=== PATIENT | female | born 1930 | race Caucasian/White ===

== ENCOUNTER 2016-08-14 10:45 | Emergency (ER) | payer MEDICARE, BC ==
[2016-08-14] MEDS ORDERED: Nitroglycerin 0.4 MG Tab.SL SL ONE (10:56)
[2016-08-14 11:06] VITALS: BP 152/87
[2016-08-14] MEDS ORDERED: Clopidogrel 75 MG Tab PO ONE (11:11)
[2016-08-14] MEDS ORDERED: Heparin Sodium 5,000 Units/ML Vial IVPUSH ONE (11:11)
[2016-08-14] MEDS ORDERED: Heparin Sodium/D5W 25,000 UNITS/500 ML BAG IV SCH (11:15)
--- NOTE | 2016-08-14 11:24 | EDM.PDOC ---
[id number] 4d CHEST PAIN Time Seen by Provider: 08/14/16 10:50 Source of Information: Reports: Patient, Family History Limitations: Reports: No limitations - History of Present Illness INITIAL COMMENTS - FREE TEXT/NARRATIVE: 85-year-old female was at work this morning when she developed sudden substernal chest pain radiating into her neck and head. She had no shortness of breath or significant diaphoresis, but did have nausea. It was not resolving so she called her daughter who brought her into the emergency room. She had one emesis in route. She has no documented coronary artery disease but did have a Cardiolite stress test 1-1/2 year ago that did show some abnormalities. She also has had intermittent atrial fibrillation in the past. On arrival an EKG was done which showed ST elevation, borderline but present, in the inferior leads especially in compared to her EKG from 2014. She took 2 full aspirin prior to arriving. Her initial blood pressure was 190/90. She denied abdominal pain, peripheral edema or recent trauma. No fevers or chills. Onset: sudden Duration: Hour(s): (One and one half hours ago) Quality: Reports: Burning, Pressure Severity: moderate Associated Symptoms: Reports: chest pain, malaise, nausea/vomiting. 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: Reports: Aspirin (She took 2 adult aspirin) - Related Data Allergies Allergy/AdvReac Type Severity Reaction Status Date / Time No Known Allergies Allergy Verified 08/14/16 10:46 Home Meds: Home Meds Aspirin [[place] Aspirin] 81 mg PO DAILY 01/29/15 [History] Cranberry 400 mg PO DAILY 01/29/15 [History] Hydrochlorothiazide [Microzide] 12.5 mg PO DAILY 01/29/15 [History] Lisinopril 40 mg PO DAILY 01/29/15 [History] Multivitamin [Multi-Vitamin Daily] 1 tab PO DAILY 01/29/15 [History] Simvastatin [Zocor] 40 mg PO BEDTIME 01/29/15 [History] Triamcinolone Acetonide [Triamcinolone Acetonide 0.1% Crm] 1 applic TOP ASDIRECTED 01/29/15 [History] metFORMIN [Glucophage] 500 mg PO DAILY 01/29/15 [History] Past Medical History HEENT History: Reports: Cataract, Impaired vision Other HEENT History: wears glasses Cardiovascular History: Reports: Angina, High cholesterol, Hypertension Other Cardiovascular History: recurrent chest pains Gastrointestinal History: Reports: Chronic constipation Genitourinary History: Reports: Retention, urinary, UTI, recurrent Other Genitourinary History: frequent bladder infections 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: Musculoskeletal History: Reports: Arthritis, Fracture Other Musculoskeletal History: hand fracture Neurological History: Reports: Neuropathy, diabetic, Neuropathy, peripheral Endocrine/Metabolic History: Reports: Diabetes, type II - Infectious Disease History Infectious Disease History: Reports: Chicken pox, Measles, Mumps, Shingles - Past Surgical History HEENT Surgical History: Reports: Cataract surgery, Tonsillectomy Cardiovascular Surgical History: Reports: None GI Surgical History: Reports: Colon Female Surgical History: Reports: Other (see below) Other Female Surgeries/Procedures: stretched bladder Endocrine Surgical History: Reports: None Neurological Surgical History: Reports: None Musculoskeletal Surgical History: Reports: None Social & Family History - Family History Family Medical History: Noncontributory - Tobacco Use Smoking Status *Q: Never Smoker Years of Tobacco use: 2 Packs/Tins Daily: 0.5 Second Hand Smoke Exposure: No - Caffeine Use Caffeine Use: Reports: Coffee - Recreational Drug Use Recreational Drug Use: No ED ROS GENERAL - Review of Systems Review Of Systems: See Below Constitutional: Denies: fever, chills HEENT: Reports: No symptoms Respiratory: Denies: Shortness of Breath Cardiovascular: Reports: Chest pain. Denies: Palpitations GI/Abdominal: Reports: Nausea, Vomiting. Denies: Abdominal pain : Reports: no symptoms Skin: Reports: no symptoms Neurological: Reports: No Symptoms Psychiatric: Reports: No symptoms ED EXAM, GENERAL - Physical Exam Exam: See Below Exam Limited By: No limitations General Appearance: alert, anxious, mild distress (Patient was moderately uncomfortable on arrival) Eye Exam: bilateral eye: normal inspection Neck: non-tender Respiratory/Chest: no respiratory distress, lungs clear Cardiovascular: regular rate, rhythm. No: extra beats GI/Abdominal: soft, non tender Extremities: normal inspection. No: pedal edema Neurological: alert, oriented, no motor/sensory deficits Psychiatric: normal affect, normal mood Skin Exam: Warm, Dry EKG INTERPRETATION Rhythm: NSR ST-T: elevated (Lead 2-3 and aVF) Comparison: change from previous EKG (ST segments were level without elevation in 2014, patient was also in atrial fibrillation at that time) Course - Vital Signs Last Recorded V/S: Last Vital Signs Temp 96.6 F 08/14/16 10:57 Pulse 72 08/14/16 11:06 Resp 20 08/14/16 11:06 BP 152/87 H 08/14/16 11:06 Pulse Ox 93 L 08/14/16 11:06 - Orders/Labs/Meds Orders: Active Orders 24 hr Category Date Time Status EKG Documentation Completion [RC] ASDIRECTED Care 08/14/16 10:56 Active EKG 12 Lead [EK] Routine Ther 08/14/16 10:55 Ordered Labs: Laboratory Tests 08/14/16 08/14/16 Range/Units 10:56 10:56 WBC 7.0 (4.5-11.0) K/uL RBC 4.65 (3.30-5.50) M/uL Hgb 13.0 (12.0-15.0) g/dL Hct 40.0 (36.0-48.0) % MCV 86 (80-98) fL MCH 28 (27-31) pg MCHC 33 (32-36) % Plt Count 283 (150-400) K/uL Neut % (Auto) 44 (36-66) % Lymph % (Auto) 42 (24-44) % [place] % (Auto) 10 H (2-6) % Eos % (Auto) 2 (2-4) % Baso % (Auto) 1 (0-1) % Sodium 138 L (140-148) mmol/L Potassium 4.5 (3.6-5.2) mmol/L Chloride 102 (100-108) mmol/L Carbon Dioxide 27 (21-32) mmol/L Anion Gap 13.5 (5.0-14.0) mmol/L BUN 23 H (7-18) mg/dL Creatinine 0.8 (0.6-1.0) mg/dL Est Cr Clr Drug Dosing 46.01 mL/min Estimated GFR (MDRD) > 60 (>60) Glucose 137 H (74-106) mg/dL Calcium 8.5 (8.5-10.1) mg/dL Total Bilirubin 0.9 (0.2-1.0) mg/dL AST 18 (15-37) U/L ALT 17 (12-78) U/L Alkaline Phosphatase 60 (46-116) U/L Troponin I < 0.017 (0.000-0.056) ng/mL Total Protein 7.8 (6.4-8.2) g/dL Albumin 3.8 (3.4-5.0) g/dL Globulin 4.0 H (2.3-3.5) g/dL Albumin/Globulin Ratio 1.0 L (1.2-2.2) Meds: Medications Discontinued Medications Generic Name Dose Route Start Last Admin Trade Name Freq PRN Reason Stop Dose Admin Clopidogrel Bisulfate 300 mg 08/14/16 11:11 08/14/16 11:18 Plavix PO 08/14/16 11:12 300 mg ONETIME ONE Administration Heparin Sodium (Porcine) 4,000 units 08/14/16 11:11 08/14/16 11:18 Heparin Sodium IVPUSH 08/14/16 11:12 4,000 units ONETIME ONE Administration Heparin Sodium/Dextrose 25,000 units in 500 mls @ 1,132.167 mls/hr 08/14/16 11 :15 08/14/16 11:19 Heparin 25,000 Units In D5w 500 Ml IV 800 units/kg/hr TITRATE PANFILO 1,132.167 mls/hr Protocol Administration 800 UNITS/KG/HR Nitroglycerin 0.4 mg 08/14/16 10:56 08/14/16 11:00 Nitrostat SL 08/14/16 10:57 0.4 mg ONETIME ONE Administration - Re-Assessments/Exams Free Text/Narrative Re-Assessment/Exam: 08/14/16 11:23 Patient was given one sublingual nitroglycerin, it gave her a headache but also reduced her chest pain to almost gone. I discussed her condition with Dr. 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 Departure - Departure Time of Disposition: 11:33 Disposition: DC/Tfer to Other Condition: fair Clinical Impression: ST elevation (STEMI) myocardial infarction of unspecified site Qualifiers: Involved coronary artery: unspecified coronary artery Qualified Code(s): I21.3 - ST elevation (STEMI) myocardial infarction of unspecified site Referrals: Etienne Suazo MD [Primary Care Provider] - Forms: ED Department Discharge Care Plan Goals: Patient was urgently transferred to [facility] for cardiology evaluation and intervention - My Orders Last 24 Hours: My Active Orders 08/14/16 10:55 EKG 12 Lead [EK] Routine 08/14/16 10:56 EKG Documentation Completion [RC] ASDIRECTED - Assessment/Plan Last 24 Hours: My Active Orders 08/14/16 10:55 EKG 12 Lead [EK] Routine 08/14/16 10:56 EKG Documentation Completion [RC] ASDIRECTED
== END 2016-08-14 11:32 | disposition other institution (70) ==
LOC: JP.ED 10:45
DX: I21.3 ST elevation (STEMI) myocardial infarction of unspecified site (principal); I10 Essential (primary) hypertension; E11.9 Type 2 diabetes mellitus without complications; Z79.899 Other long term (current) drug therapy; Z79.82 Long term (current) use of aspirin; E78.00 Pure hypercholesterolemia, unspecified
CPT/HCPCS: 36415; 80053; 84484; 85025; 93005; 96374; 99285; A9270; J1644; 93010

== ENCOUNTER 2017-09-21 06:29 | Emergency (ER) | payer MEDICARE, BC ==
--- NOTE | 2017-09-21 07:39 | EDM.PDOC ---
ED HPI GENERAL MEDICAL PROBLEM - General Chief Complaint: General Stated Complaint: stroke? Time Seen by Provider: 09/21/17 07:22 Source of Information: Reports: Patient, Family, RN Notes Reviewed History Limitations: Reports: No Limitations - History of Present Illness INITIAL COMMENTS - FREE TEXT/NARRATIVE: 86-year-old female presents to the emergency department today with complaint of right leg weakness, she states she awoke this morning at 4:30 AM to go to the bathroom after finishing on the commode stood up had a sudden onset of weakness was able to guide herself to the floor and crawl to the couch and call for assistance. EMS services were called Crowder stroke scale was negative on scene at this time she is complaining of the right leg feels heavy. She also has a history recently of right leg weakness of which she is been going to physical therapy doing lumbar exercises - Related Data Allergies Allergy/AdvReac Type Severity Reaction Status Date / Time No Known Allergies Allergy Verified 09/21/17 06:41 Home Meds: Home Meds Aspirin [[place] Aspirin] 81 mg PO DAILY 01/29/15 [History] Cranberry 400 mg PO DAILY 01/29/15 [History] Hydrochlorothiazide [Microzide] 12.5 mg PO DAILY 01/29/15 [History] Lisinopril 40 mg PO DAILY 01/29/15 [History] Multivitamin [Multi-Vitamin Daily] 1 tab PO DAILY 01/29/15 [History] Simvastatin [Zocor] 40 mg PO BEDTIME 01/29/15 [History] Triamcinolone Acetonide [Triamcinolone Acetonide 0.1% Crm] 1 applic TOP ASDIRECTED 01/29/15 [History] metFORMIN [Glucophage] 500 mg PO DAILY 01/29/15 [History] Clopidogrel Bisulfate [Clopidogrel] 75 mg PO DAILY 09/21/17 [History] Metoprolol Tartrate 25 mg PO BID 09/21/17 [History] Past Medical History HEENT History: Reports: Cataract, Impaired Vision Other HEENT History: wears glasses Cardiovascular History: Reports: Angina, CAD, High Cholesterol, Hypertension, [place] , Stents Other Cardiovascular History: recurrent chest pains Gastrointestinal History: Reports: Chronic Constipation Genitourinary History: Reports: Retention, Urinary, UTI, Recurrent Other Genitourinary History: frequent bladder infections 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: Musculoskeletal History: Reports: Arthritis, Fracture Other Musculoskeletal History: hand fracture Neurological History: Reports: Neuropathy, Diabetic, Neuropathy, Peripheral Endocrine/Metabolic History: Reports: Diabetes, Type II - Infectious Disease History Infectious Disease History: Reports: Chicken Pox, Measles, Mumps, Shingles - Past Surgical History HEENT Surgical History: Reports: Cataract Surgery, Tonsillectomy Cardiovascular Surgical History: Reports: Coronary Artery Stent Female Surgical History: Reports: Other (See Below) Social & Family History - Family History Family Medical History: Noncontributory - Tobacco Use Smoking Status *Q: Never Smoker - Caffeine Use Caffeine Use: Reports: Coffee - Recreational Drug Use Recreational Drug Use: No ED ROS GENERAL - Review of Systems Review Of Systems: See Below Constitutional: Reports: Weakness HEENT: Reports: No Symptoms Respiratory: Reports: No Symptoms Cardiovascular: Reports: No Symptoms GI/Abdominal: Reports: No Symptoms : Reports: No Symptoms Musculoskeletal: Reports: Other (Leg weakness right side) Skin: Reports: No Symptoms Neurological: Reports: Weakness (Right leg) ED EXAM, GENERAL - Physical Exam Exam: See Below Free Text/Narrative:: General: Female, not in any distress, alert and oriented x3 HEENT: head is atraumatic normocephalic, eyes pupils equal round reactive to light, sclera clear no conjunctivitis appreciated. Ears tympanic membranes clear and jenkins landmarks and light reflex are present bilaterally canals are clear. Nose no septal deviation, nares are clear, no blood present. Mouth mucosa is moist and pink no erythema or exudate noted in soft palate, tongue is midline uvula is midline, dentures in place. Neck: Supple no thyromegaly no tracheal deviation. Nodes: Cervical nodes subclavicular nodes nontender no palpable lymphadenopathy noted. Lungs: clear to auscultation bilaterally with symmetrical respirations, no adventitious noise appreciated. CV: Regular rate and rhythm S1 and S2 appreciated no murmurs rubs or gallops noted. Abdomen: Soft, nontender, no palpable masses or organomegaly appreciated, no distention no guarding bowel sounds are present, . Neuro: Cranial nerves II through XII grossly intact, power is 5 out 5 in upper and lower extremities however she can easily lift her left leg to 45 and hold it without difficulty, the left can only be lifted to about 25 and she has difficulty holding it in place, no dysdiadochokinesis , Skin: Warm and dry, intact Extremities: No lower extremity edema appreciated, pedal pulse is +2. Course - Vital Signs Last Recorded V/S: Last Vital Signs Temp 96 F 09/21/17 06:38 Pulse 56 L 09/21/17 08:26 Resp 11 L 09/21/17 08:26 BP 159/67 H 09/21/17 08:26 Pulse Ox 96 09/21/17 08:26 - Orders/Labs/Meds Orders: Active Orders 24 hr Category Date Time Status EKG Documentation Completion [RC] ASDIRECTED Care 09/21/17 07:32 Active EKG 12 Lead [EK] Urgent Ther 09/21/17 07:31 Ordered Labs: Laboratory Tests 09/21/17 09/21/17 09/21/17 Range/Units 07:40 07:40 07:40 WBC 7.7 (4.5-11.0) K/uL RBC 4.60 (3.30-5.50) M/uL Hgb 12.8 (12.0-15.0) g/dL Hct 39.6 (36.0-48.0) % MCV 86 (80-98) fL MCH 28 (27-31) pg MCHC 32 (32-36) % Plt Count 245 (150-400) K/uL Neut % (Auto) 69 H (36-66) % Lymph % (Auto) 22 L (24-44) % [place] % (Auto) 8 H (2-6) % Eos % (Auto) 2 (2-4) % Baso % (Auto) 0 (0-1) % ESR 18 (0-25) mm/hr PT 10.0 (9.5-12.0) sec INR 0.94 (0.80-1.20) Sodium 139 L (140-148) mmol/L Potassium 4.0 (3.6-5.2) mmol/L Chloride 104 (100-108) mmol/L Carbon Dioxide 27 (21-32) mmol/L Anion Gap 12.0 (5.0-14.0) mmol/L BUN 22 H (7-18) mg/dL Creatinine 0.9 (0.6-1.0) mg/dL Est Cr Clr Drug Dosing 40.18 mL/min Estimated GFR (MDRD) 60 (>60) Glucose 145 H (74-106) mg/dL Calcium 8.9 (8.5-10.1) mg/dL Total Bilirubin 0.9 (0.2-1.0) mg/dL AST 15 (15-37) U/L ALT 16 (12-78) U/L Alkaline Phosphatase 64 (46-116) U/L Troponin I < 0.017 (0.000-0.056) ng/mL Total Protein 6.8 (6.4-8.2) g/dL Albumin 3.3 L (3.4-5.0) g/dL Globulin 3.5 (2.3-3.5) g/dL Albumin/Globulin Ratio 0.9 L (1.2-2.2) Departure - Departure Time of Disposition: 09:58 Disposition: DC/Tfer to Acute Hospital 02 Condition: Fair Clinical Impression: Right leg weakness - Discharge Information Referrals: Etienne Suazo MD [Primary Care Provider] - Forms: ED Department Discharge - My Orders Last 24 Hours: My Active Orders 09/21/17 07:31 EKG 12 Lead [EK] Urgent 09/21/17 07:32 EKG Documentation Completion [RC] ASDIRECTED - Assessment/Plan Last 24 Hours: My Active Orders 09/21/17 07:31 EKG 12 Lead [EK] Urgent 09/21/17 07:32 EKG Documentation Completion [RC] ASDIRECTED Plan: Assessment Acuity = acute Site and laterality = right leg weakness complicating the patient's known history of diabetes mellitus type 2, hypertension, dyslipidemia and coronary artery disease Etiology = suspicious for cerebrovascular accident Manifestations = none Location of injury = Home Lab values = CBC, CMP, troponin all negative initial head CT scan shows no acute process, EKG demonstrates a sinus rhythm Q waves appreciated in leads 3 and aVF, ABCD squared score = 7 Plan Called discussed case with Dr. Rivera neurology at [facility] suspicious for cerebrovascular accident recommend no TPA at this time transfer to [place] for further evaluation, discussed case with Dr. Ren emergency room physician kindly accepted the patient in transport, she will be transported via EMS ground This note was dictated using [employer] voice recognition software please call with any questions on syntax or grammar.
--- NOTE | 2017-09-21 08:41 | CT ---
Head wo Cont CLINICAL HISTORY: Right leg weakness COMPARISON: None TECHNIQUE: Transverse scans were obtained from the base of the skull through the vertex without IV co ntrast on a multislice, multidetector CT scanner. Auto dosage reduction and iterative reconstruction techniques employed. FINDINGS: No focal abnormal parenchymal densities are identified. There is no mass effect, hemorrhage , or extraaxial collection. The basal cisterns and sulci over the convexities are prominent. The vent ricles are normal for age. There is a tiny falx lipoma anteriorly IMPRESSION: Age-related atrophy No focal lesion, hemorrhage or extra-axial collection
[2017-09-21 11:00] VITALS: BP 164/64
== END 2017-09-21 11:01 ==
LOC: JP.ED 06:29
DX: M62.81 Muscle weakness (generalized) (principal); E11.40 Type 2 diabetes mellitus with diabetic neuropathy, unspecified; E78.5 Hyperlipidemia, unspecified; I10 Essential (primary) hypertension; I25.10 Atherosclerotic heart disease of native coronary artery without angina pectoris; E78.00 Pure hypercholesterolemia, unspecified; I25.2 Old myocardial infarction; Z79.84 Long term (current) use of oral hypoglycemic drugs; Z79.899 Other long term (current) drug therapy; Z79.82 Long term (current) use of aspirin
CPT/HCPCS: 36415; 70450; 70450-26; 80053; 84484; 85025; 85610; 85651; 93005; 99284; 99285-25

== ENCOUNTER 2018-11-08 14:29 | Emergency (ER) | payer BC, MEDICARE ==
--- NOTE | 2018-11-08 15:17 | EDM.PDOC ---
ED HPI GENERAL MEDICAL PROBLEM - General Chief Complaint: Neurological Problem Stated Complaint: STROKE? BLURRY VISION, VOMITING,FAINTING Time Seen by Provider: 11/08/18 15:05 Source of Information: Reports: Patient, Family, Old Records, RN History Limitations: Reports: No Limitations - History of Present Illness INITIAL COMMENTS - FREE TEXT/NARRATIVE: 87 yo female with a pHx of TIA presents a couple hrs after a roughly 30 min episode today that included light-headedness, back pain, and later chest pain. She vomited once. There was no blood in the emesis. No diarrhea. No fever. Has some "queasiness" now, otherwise she is fully back to normal. She called her daughter who brought her into the ER. Onset: Today Onset Date: 11/08/18 Onset Time: 13:00 Duration: Minutes: (~30), Resolved Prior to Arrival Location: Reports: Head, Chest, Back Quality: Reports: Pressure Severity: Moderate Improves with: Reports: Other (time) Worsens with: Reports: Other (unknown) Context: Reports: Other (See HPI) Associated Symptoms: Reports: Chest Pain (resolved), Nausea/Vomiting (x one). 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) (none) - Related Data Allergies Allergy/AdvReac Type Severity Reaction Status Date / Time No Known Allergies Allergy Verified 11/08/18 14:45 Home Meds: Home Meds Aspirin [[place] Aspirin] 81 mg PO DAILY 01/29/15 [History] Cranberry 400 mg PO DAILY 01/29/15 [History] Hydrochlorothiazide [Microzide] 12.5 mg PO DAILY 01/29/15 [History] Lisinopril 40 mg PO DAILY 01/29/15 [History] Multivitamin [Multi-Vitamin Daily] 1 tab PO DAILY 01/29/15 [History] Simvastatin [Zocor] 40 mg PO BEDTIME 01/29/15 [History] Triamcinolone Acetonide [Triamcinolone Acetonide 0.1% Crm] 1 applic TOP ASDIRECTED 01/29/15 [History] metFORMIN [Glucophage] 500 mg PO DAILY 01/29/15 [History] Clopidogrel Bisulfate [Clopidogrel] 75 mg PO BID 09/21/17 [History] Metoprolol Tartrate 25 mg PO BID 09/21/17 [History] Isosorbide Dinitrate 30 mg PO DAILY 11/08/18 [History] Nitrofurantoin [place]/Macrocryst [Nitrofurantoin [place]-MCR] 100 mg PO DAILY [History] Timolol Maleate 1 drop EYEBOTH DAILY 11/08/18 [History] Past Medical History HEENT History: Reports: Cataract, Impaired Vision Other HEENT History: wears glasses Cardiovascular History: Reports: Angina, CAD, High Cholesterol, Hypertension, [place] , Stents Other Cardiovascular History: recurrent chest pains Gastrointestinal History: Reports: Chronic Constipation Genitourinary History: Reports: Retention, Urinary, UTI, Recurrent Other Genitourinary History: frequent bladder infections [employer]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: Musculoskeletal History: Reports: Arthritis, Fracture Other Musculoskeletal History: hand fracture Neurological History: Reports: Neuropathy, Diabetic, Neuropathy, Peripheral, TIA Endocrine/Metabolic History: Reports: Diabetes, Type II - Infectious Disease History Infectious Disease History: Reports: Chicken Pox, Measles, Mumps, Shingles - Past Surgical History HEENT Surgical History: Reports: Cataract Surgery, Tonsillectomy Cardiovascular Surgical History: Reports: Coronary Artery Stent Social & Family History - Family History Family Medical History: Noncontributory - Tobacco Use Smoking Status *Q: Never Smoker - Caffeine Use Caffeine Use: Reports: Coffee - Recreational Drug Use Recreational Drug Use: No ED ROS GENERAL - Review of Systems Review Of Systems: See Below Constitutional: Reports: No Symptoms HEENT: Reports: No Symptoms Respiratory: Reports: No Symptoms Cardiovascular: Reports: Chest Pain (transient) Endocrine: Reports: No Symptoms GI/Abdominal: Reports: Nausea, Vomiting (once). Denies: Abdominal Pain, Black Stool, Bloody Stool, Diarrhea, Hematemesis, Hematochezia, Melena : Reports: No Symptoms Musculoskeletal: Reports: Back Pain (transient) Skin: Reports: No Symptoms Neurological: Reports: Dizziness (transient) Psychiatric: Reports: No Symptoms ED EXAM, GENERAL - Physical Exam Exam: See Below Exam Limited By: No Limitations General Appearance: Alert, WD/WN, No Apparent Distress Eye Exam: Bilateral Eye: Normal Inspection Ears: Normal External Exam, Normal Canal, Hearing Grossly Normal, Normal TMs Ear Exam: Bilateral Ear: Auricle Normal, Canal Normal, TM normal Nose: Normal Inspection, No Blood Throat/Mouth: Normal Inspection, Normal Lips, Normal Oropharynx, Normal Voice, No Airway Compromise Head: Atraumatic, Normocephalic Neck: Normal Inspection Respiratory/Chest: No Respiratory Distress, Lungs Clear, Normal Breath Sounds, No Accessory Muscle Use Cardiovascular: Regular Rate, Rhythm, No Edema GI/Abdominal: Normal Bowel Sounds, Soft, Non-Tender, No Distention Back Exam: Normal Inspection. No: CVA Tenderness (R), CVA Tenderness (L) Extremities: Normal Inspection, Normal Range of Motion, Non-Tender, No Pedal Edema Neurological: Alert, Oriented, CN II-XII Intact, Normal Cognition, No Motor/ Sensory Deficits Psychiatric: Normal Affect, Normal Mood Skin Exam: Warm, Dry, Intact, Normal Color, No Rash Course - Vital Signs Text/Narrative:: Ambulated in the ER, daughter thought her mother walked per her normal. No chest pain recurred with this. Last Recorded V/S: Last Vital Signs Temp 35.4 C 11/08/18 15:00 Pulse 64 11/08/18 15:24 Resp 14 11/08/18 15:24 BP 122/72 11/08/18 15:24 Pulse Ox 94 L 11/08/18 15:24 - Orders/Labs/Meds Labs: Laboratory Tests 11/08/18 Range/Units 15:10 Troponin I < 0.017 (0.000-0.056) ng/mL Departure - Departure Time of Disposition: 15:59 Disposition: Home, Self-Care 01 Condition: Good Clinical Impression: Nonspecific chest pain Instructions: Nonspecific Chest Pain, [id number] Referrals: Curry Melendez MD [Primary Care Provider] - Forms: ED Department Discharge Additional Instructions: Continue your usual meds. Return if your symptoms recur.
[2018-11-08 15:25] VITALS: BP 122/72; PULSE 64
== END 2018-11-08 16:07 | disposition home or self-care (01) ==
LOC: JP.ED 14:29
DX: R07.9 Chest pain, unspecified (principal); R42 Dizziness and giddiness; I10 Essential (primary) hypertension; I25.2 Old myocardial infarction; E11.40 Type 2 diabetes mellitus with diabetic neuropathy, unspecified; Z86.73 Personal history of transient ischemic attack (TIA), and cerebral infarction without residual deficits; Z79.82 Long term (current) use of aspirin; Z98.49 Cataract extraction status, unspecified eye; Z98.890 Other specified postprocedural states; Z95.5 Presence of coronary angioplasty implant and graft
CPT/HCPCS: 36415; 84484; 99283

== ENCOUNTER 2018-11-29 07:19 | Emergency (ER) | payer MEDICARE ==
[2018-11-29 07:38] VITALS: BP 185/75; PULSE 64
--- NOTE | 2018-11-29 08:07 | EDM.PDOC ---
ED HPI GENERAL MEDICAL PROBLEM - General Chief Complaint: Genitourinary Problem Stated Complaint: UTI ? Time Seen by Provider: 11/29/18 07:58 Source of Information: Reports: Patient, Family, RN Notes Reviewed History Limitations: Reports: No Limitations - History of Present Illness INITIAL COMMENTS - FREE TEXT/NARRATIVE: 88-year-old female presents emergency department today complaint of urinary symptoms, she states she's been ill for the last 3 days has had some chills and vomited one time does have pressure and dysuria, history of frequent urinary tract infection not sure when the last urinary tract infection was - Related Data Allergies Allergy/AdvReac Type Severity Reaction Status Date / Time No Known Allergies Allergy Verified 11/29/18 07:34 Home Meds: Home Meds Aspirin [[place] Aspirin] 81 mg PO DAILY 01/29/15 [History] Cranberry 400 mg PO DAILY 01/29/15 [History] Hydrochlorothiazide [Microzide] 12.5 mg PO DAILY 01/29/15 [History] Lisinopril 40 mg PO DAILY 01/29/15 [History] Multivitamin [Multi-Vitamin Daily] 1 tab PO DAILY 01/29/15 [History] Simvastatin [Zocor] 40 mg PO BEDTIME 01/29/15 [History] Triamcinolone Acetonide [Triamcinolone Acetonide 0.1% Crm] 1 applic TOP ASDIRECTED 01/29/15 [History] metFORMIN [Glucophage] 500 mg PO DAILY 01/29/15 [History] Clopidogrel Bisulfate [Clopidogrel] 75 mg PO BID 09/21/17 [History] Metoprolol Tartrate 25 mg PO BID 09/21/17 [History] Isosorbide Dinitrate 30 mg PO DAILY 11/08/18 [History] Nitrofurantoin [place]/Macrocryst [Nitrofurantoin [place]-MCR] 100 mg PO DAILY [History] Timolol Maleate 1 drop EYEBOTH DAILY 11/08/18 [History] Past Medical History HEENT History: Reports: Cataract, Impaired Vision Other HEENT History: wears glasses Cardiovascular History: Reports: Angina, CAD, High Cholesterol, Hypertension, [place] , Stents Other Cardiovascular History: recurrent chest pains Gastrointestinal History: Reports: Chronic Constipation Genitourinary History: Reports: Retention, Urinary, UTI, Recurrent Other Genitourinary History: frequent bladder infections [employer] History: Reports: Musculoskeletal History: Reports: Arthritis, Fracture Other Musculoskeletal History: hand fracture Neurological History: Reports: Neuropathy, Diabetic, Neuropathy, Peripheral, TIA Endocrine/Metabolic History: Reports: Diabetes, Type II - Infectious Disease History Infectious Disease History: Reports: Chicken Pox, Measles, Mumps, Shingles - Past Surgical History HEENT Surgical History: Reports: Cataract Surgery, Tonsillectomy Cardiovascular Surgical History: Reports: Coronary Artery Stent Social & Family History - Family History Family Medical History: Noncontributory - Tobacco Use Smoking Status *Q: Never Smoker - Caffeine Use Caffeine Use: Reports: Coffee - Recreational Drug Use Recreational Drug Use: No ED ROS GENERAL - Review of Systems Review Of Systems: See Below Constitutional: Reports: Chills Respiratory: Reports: No Symptoms Cardiovascular: Reports: No Symptoms GI/Abdominal: Reports: Nausea, Vomiting : Reports: Dysuria, Urgency ED EXAM, RENAL/ - Physical Exam Exam: See Below Exam Limited By: No Limitations General Appearance: Alert, WD/WN, No Apparent Distress Respiratory/Chest: No Respiratory Distress GI/Abdominal: Soft, Tender (Suprapubic) Back Exam: No: CVA Tenderness (R), CVA Tenderness (L) Course - Vital Signs Last Recorded V/S: Last Vital Signs Temp 97.3 F 11/29/18 07:37 Pulse 64 11/29/18 07:37 Resp 16 11/29/18 07:37 BP 185/75 H 11/29/18 07:37 Pulse Ox 93 L 11/29/18 07:37 - Orders/Labs/Meds Orders: Active Orders 24 hr Category Date Time Status CULTURE URINE [RM] Urgent Lab 11/29/18 07:59 Ordered Labs: Laboratory Tests 11/29/18 Range/Units 07:32 Urine Color Yellow (YELLOW) Urine Appearance Cloudy A (CLEAR) Urine pH 6.0 (5.0-8.0) Ur Specific Guy 1.010 (1.008-1.030) Urine Protein 30 H (NEGATIVE) mg/dL Urine Glucose (UA) Negative (NEGATIVE) mg/dL Urine Ketones Trace H (NEGATIVE) mg/dL Urine Occult Blood Moderate H (NEGATIVE) Urine Nitrite Negative (NEGATIVE) Urine Bilirubin Negative (NEGATIVE) Urine Urobilinogen 0.2 (0.2-1.0) EU/dL Ur Leukocyte Esterase Large H (NEGATIVE) Urine RBC 30-40 H (0-5) Urine WBC Packed H (0-5) Ur Epithelial Cells Not seen Amorphous Sediment Few Urine Bacteria Many Urine Mucus Not seen Departure - Departure Time of Disposition: 08:06 Disposition: Home, Self-Care 01 Condition: Fair Clinical Impression: UTI, Urinary tract infectious disease - Discharge Information Referrals: Curry Melendez MD [Primary Care Provider] - Additional Instructions: Take full course of antibiotics, Please followup with your primary care provider in 5-7 days if not better, please call return to the emergency department with worsening of symptoms. - My Orders Last 24 Hours: My Active Orders 11/29/18 07:59 CULTURE URINE [RM] Urgent - Assessment/Plan Last 24 Hours: My Active Orders 11/29/18 07:59 CULTURE URINE [RM] Urgent Plan: Assessment Acuity = acute Site and laterality = urinary tract infection Etiology = probable bacterial cause Manifestations = chills, dysuria Location of injury = Home Lab values = urinalysis reveals 30-40 RBCs consistent hematuria and packed WBCs consistent pyuria cultures pending Plan Elected to treat empirically Bactrim DS one tab by mouth twice a day 7 days follow-up primary care in 5-7 days if no better will contact when culture results become available This note was dictated using [employer] voice recognition software please call with any questions on syntax or grammar.
== END 2018-11-29 08:11 | disposition home or self-care (01) ==
LOC: JP.ED 07:19
DX: N39.0 Urinary tract infection, site not specified (principal); I25.10 Atherosclerotic heart disease of native coronary artery without angina pectoris; I10 Essential (primary) hypertension; I25.2 Old myocardial infarction; Z95.5 Presence of coronary angioplasty implant and graft; E11.40 Type 2 diabetes mellitus with diabetic neuropathy, unspecified; Z79.84 Long term (current) use of oral hypoglycemic drugs; Z79.82 Long term (current) use of aspirin; Z79.899 Other long term (current) drug therapy
CPT/HCPCS: 81001; 87086; 87088; 87186; 99283

== ENCOUNTER 2020-06-16 17:03 | Emergency (ER) | payer MEDICARE ==
[2020-06-16 17:14] VITALS: BP 188/80; PULSE 58
[2020-06-16] MEDS ORDERED: Ketorolac 30 MG/ML SDV IVPUSH ONE (18:08)
--- NOTE | 2020-06-16 18:15 | EDM.PDOC ---
ED HPI GENERAL MEDICAL PROBLEM - General Chief Complaint: Lower Extremity Injury/Pain Stated Complaint: BACK PAIN Time Seen by Provider: 06/16/20 18:05 Source of Information: Reports: Patient, Family History Limitations: Reports: No Limitations - History of Present Illness INITIAL COMMENTS - FREE TEXT/NARRATIVE: 89-year-old female developed a very sharp left lower back pain that radiates into the posterior left thigh since this morning. No trauma, no fall, no fever, no urinary symptoms. She has not had this in the past. She has very little pain if she lays still but any movement of the left hip causes increased sharp pain at the SI joint area. No peripheral edema, no rash over the painful area. Onset: Unknown/Unsure (Woke up with pain) Associated Symptoms: Reports: No Other Symptoms - Related Data Allergies Allergy/AdvReac Type Severity Reaction Status Date / Time Sulfa (Sulfonamide AdvReac Other Verified 06/16/20 17:13 Antibiotics) Home Meds: Home Meds Aspirin [[place] Aspirin] 81 mg PO DAILY 01/29/15 [History] Cranberry 400 mg PO DAILY 01/29/15 [History] Lisinopril 40 mg PO DAILY 01/29/15 [History] Multivitamin [Multi-Vitamin Daily] 1 tab PO DAILY 01/29/15 [History] Simvastatin [Zocor] 40 mg PO BEDTIME 01/29/15 [History] Triamcinolone Acetonide [Triamcinolone Acetonide 0.1% Crm] 1 applic TOP ASDIRECTED 01/29/15 [History] hydroCHLOROthiazide [Microzide] 12.5 mg PO DAILY 01/29/15 [History] metFORMIN [Glucophage] 500 mg PO DAILY 01/29/15 [History] Clopidogrel Bisulfate [Clopidogrel] 75 mg PO DAILY 09/21/17 [History] Metoprolol Tartrate 25 mg PO BID 09/21/17 [History] Isosorbide Dinitrate 30 mg PO DAILY 11/08/18 [History] Nitrofurantoin [place]/Macrocryst [Nitrofurantoin [place]-MCR] 100 mg PO DAILY 11/08/18 [History] Timolol Maleate 1 drop EYEBOTH DAILY 11/08/18 [History] Latanoprost [Xalatan 0.005% Ophth Soln] 1 drop EYEBOTH BEDTIME 08/24/19 [History] Past Medical History HEENT History: Reports: Cataract, Impaired Vision Other HEENT History: wears glasses Cardiovascular History: Reports: Angina, CAD, High Cholesterol, Hypertension, [place], Stents Other Cardiovascular History: recurrent chest pains Gastrointestinal History: Reports: Chronic Constipation Genitourinary History: Reports: Retention, Urinary, UTI, Recurrent Other Genitourinary History: frequent bladder infections [employer]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: Musculoskeletal History: Reports: Arthritis, Fracture Other Musculoskeletal History: hand fracture Neurological History: Reports: Neuropathy, Diabetic, Neuropathy, Peripheral, TIA Endocrine/Metabolic History: Reports: Diabetes, Type II Hematologic History: Reports: Anticoagulation Therapy - Infectious Disease History Infectious Disease History: Reports: Chicken Pox, Measles, Mumps, Shingles - Past Surgical History Head Surgeries/Procedures: Reports: None HEENT Surgical History: Reports: Cataract Surgery, Tonsillectomy Cardiovascular Surgical History: Reports: Coronary Artery Stent GI Surgical History: Reports: Colon Female Surgical History: Reports: Other (See Below) Other Female Surgeries/Procedures: stretched bladder Endocrine Surgical History: Reports: None Neurological Surgical History: Reports: None Musculoskeletal Surgical History: Reports: None Dermatological Surgical History: Reports: None Social & Family History - Family History Family Medical History: No Pertinent Family History - Tobacco Use Tobacco Use Status *Q: Never Tobacco User Second Hand Smoke Exposure: No - Caffeine Use Caffeine Use: Reports: Coffee - Recreational Drug Use Recreational Drug Use: No Review of Systems - Review of Systems Review Of Systems: See Below Respiratory: Denies: Shortness of Breath Cardiovascular: Denies: Chest Pain Neurological: Denies: Headache, Paresthesia (No paresthesias of the lower extremities, she does have neuropathic-like shooting pain from the left posterior hip down into the upper leg.) ED EXAM, GENERAL - Physical Exam Exam: See Below Exam Limited By: No Limitations General Appearance: Alert, No Apparent Distress, Other (While lying still is fairly comfortable) Head: Atraumatic Respiratory/Chest: No Respiratory Distress, Lungs Clear Cardiovascular: Regular Rate, Rhythm Extremities: Other (Passive range of motion of the right hip is asymptomatic. Passive internal and external rotation and flexion of the left hip causes intense pain in the SI joint area. It is also very sore to palpation in the high left buttock area. There is no swelling bruising or rash.) Neurological: Alert, Oriented, No Motor/Sensory Deficits Course - Vital Signs Last Recorded V/S: Last Vital Signs Temp 97.6 F 06/16/20 17:11 Pulse 58 L 06/16/20 17:11 Resp 16 06/16/20 17:11 BP 188/80 H 06/16/20 17:11 Pulse Ox 96 06/16/20 17:11 - Orders/Labs/Meds Meds: Medications Discontinued Medications Generic Name Dose Route Start Last Admin Trade Name Dedra PRN Reason Stop Dose Admin Ketorolac Tromethamine 15 mg 06/16/20 18:08 06/16/20 18:13 Toradol IVPUSH 06/16/20 18:09 15 mg ONETIME ONE Administration - Re-Assessments/Exams Free Text/Narrative Re-Assessment/Exam: 06/16/20 18:17 She has only been taking Tylenol, I gave her 15 mg of IV Toradol and will reassess in 20 minutes. 06/16/20 18:44 Patient had marked improvement after the IV Toradol. She had minimal to no pain with passive range of motion of the left hip but still had a sharp pain at the top of the buttock on the left side with certain motion. She will be discharged with 10 more doses of Toradol to take 10 mg twice daily and will increase activity as tolerated. Recheck in 5 days if not improving satisfactorily, or return at any time if worsening despite treatment. Departure - Departure Time of Disposition: 18:52 Disposition: Home, Self-Care 01 Clinical Impression: Low back pain Qualifiers: Chronicity: acute Back pain laterality: left Sciatica presence: with sciatica Sciatica laterality: sciatica of left side Qualified Code(s): M54.42 - Lumbago with sciatica, left side - Discharge Information Instructions: Acute Back Pain, Adult Referrals: Curry Melendez MD [Primary Care Provider] - Forms: ED Department Discharge Care Plan Goals: Starting tomorrow, take 1 Toradol pill with breakfast and supper for 5 days. Increase activity as tolerated and return at anytime if worsening such as fever or worsening pain. Otherwise recheck in 5 days if not improving satisfactorily. Sepsis Event Note (ED) - Evaluation Sepsis Screening Result: No Definite Risk - Focused Exam Vital Signs: Vital Signs Temp Pulse Resp BP Pulse Ox 06/16/20 17:11 97.6 F 58 L 16 188/80 H 96 06/16/20 17:08 97.6 F 58 L 16 188/80 H 96
== END 2020-06-16 18:52 | disposition home or self-care (01) ==
LOC: JP.ED 17:03
DX: M54.42 Lumbago with sciatica, left side (principal); E78.00 Pure hypercholesterolemia, unspecified; I25.10 Atherosclerotic heart disease of native coronary artery without angina pectoris; I10 Essential (primary) hypertension; E11.42 Type 2 diabetes mellitus with diabetic polyneuropathy; I25.2 Old myocardial infarction; Z86.73 Personal history of transient ischemic attack (TIA), and cerebral infarction without residual deficits; Z79.02 Long term (current) use of antithrombotics/antiplatelets; Z79.84 Long term (current) use of oral hypoglycemic drugs; Z88.2 Allergy status to sulfonamides; Z79.82 Long term (current) use of aspirin; Z79.899 Other long term (current) drug therapy; Z95.5 Presence of coronary angioplasty implant and graft
CPT/HCPCS: 96374; 99284; 99284-25; J1885

== ENCOUNTER 2021-09-21 00:46 | Inpatient (IN) | payer MEDICARE ==
[2021-09-21 01:24] LABS: ESTIMATED GFR 47 (>60); TROPONIN I HIGH SENSITIVITY 12.6 pg/mL (<=60.3)
[2021-09-21] MEDS ORDERED: Nitroglycerin/D5W 25 MG/250 ML BOTTLE IV SCH (01:30)
[2021-09-21] MEDS ORDERED: hydrALAZINE 20 MG/ML SDV IVPUSH ONE (01:34)
[2021-09-21 01:45] LABS: CORONAVIRUS COVID-19 NAA NEGATIVE (NEGATIVE)
[2021-09-21] MEDS ORDERED: hydrALAZINE 10 MG Tab PO STA (03:51)
[2021-09-21] MEDS ORDERED: LORazepam 0.5 MG Tab PO ONE (04:03)
[2021-09-21] MEDS ORDERED: Albuterol 0.083% 2.5 MG/3 ML Neb Soln NEB PRN (04:24)
[2021-09-21] MEDS ORDERED: Docusate Sodium 100 MG Cap PO PRN (04:24)
[2021-09-21] MEDS ORDERED: LORazepam 2 MG/ML SDV IV PRN (04:24)
[2021-09-21] MEDS ORDERED: oxyCODONE 5 MG Tab PO PRN (04:24)
[2021-09-21] MEDS ORDERED: Bisacodyl 5 MG Tab PO PRN (04:24)
[2021-09-21] MEDS ORDERED: Acetaminophen 325 MG Tab PO PRN (04:24)
[2021-09-21] MEDS ORDERED: Ondansetron 4 MG Tab.DIS PO PRN (04:24)
[2021-09-21] MEDS ORDERED: Sodium Chloride 0.9% 10 ML Syringe FLUSH PRN (04:24)
[2021-09-21] MEDS ORDERED: Morphine 2 MG/ML SYRINGE IVPUSH PRN (04:24)
[2021-09-21] MEDS: cefTRIAXone 1 GM in Sodium Chloride 0.9% 50 ML IV SCH (06:00)
[2021-09-21] MEDS: Clopidogrel 75 MG Tab PO SCH (08:15)
[2021-09-21] MEDS: Metoprolol Tartrate 25 MG Tab PO SCH ×2 (08:15→21:19)
[2021-09-21] MEDS: Aspirin 81 MG Tab.Chew PO SCH (08:15)
[2021-09-21] MEDS: Isosorbide Mononitrate 30 MG Tab.ER PO SCH (08:15)
[2021-09-21] MEDS: Lisinopril 20 MG Tab PO SCH (08:16)
[2021-09-21] MEDS: Timolol Maleate 0.5% Ophth Soln 5 ML Bottle EYEBOTH SCH (08:16)
[2021-09-21] MEDS: Multivitamins with Iron/Calcium/Folic Acid/Minerals Tab PO SCH (08:16)
[2021-09-21] MEDS ORDERED: Isosorbide Dinitrate 10 MG Tab PO SCH (09:00)
[2021-09-21] MEDS: hydrALAZINE 10 MG Tab PO SCH ×3 (11:05→21:20)
[2021-09-21] MEDS ORDERED: atorvaSTATin 20 MG Tab PO SCH ×2 (21:00)
[2021-09-21] MEDS ORDERED: Latanoprost 0.005% Ophth Soln 2.5 ML Bottle ONE (22:45)
[2021-09-22] MEDS: hydrALAZINE 10 MG Tab PO SCH (05:00)
[2021-09-22] MEDS: cefTRIAXone 1 GM in Sodium Chloride 0.9% 50 ML IV SCH (05:00)
[2021-09-22] MEDS ORDERED: hydrALAZINE 10 MG Tab PO SCH (09:00)
[2021-09-22] MEDS ORDERED: amLODIPine 5 MG Tab PO ONE (09:00)
[2021-09-22] MEDS: Multivitamins with Iron/Calcium/Folic Acid/Minerals Tab PO SCH (09:32)
[2021-09-22] MEDS: Timolol Maleate 0.5% Ophth Soln 5 ML Bottle EYEBOTH SCH (09:32)
[2021-09-22] MEDS: Clopidogrel 75 MG Tab PO SCH (09:32)
[2021-09-22] MEDS: Aspirin 81 MG Tab.Chew PO SCH (09:32)
[2021-09-22] MEDS: Isosorbide Mononitrate 30 MG Tab.ER PO SCH (10:35)
[2021-09-22] MEDS: Metoprolol Tartrate 25 MG Tab PO SCH (10:36)
[2021-09-22] MEDS: Lisinopril 20 MG Tab PO SCH (10:36)
[2021-09-22 12:24] VITALS: BP 158/84; PULSE 64
[2021-09-22] MEDS ORDERED: Latanoprost 0.005% Ophth Soln 2.5 ML Bottle EYEBOTH SCH ×2 (21:00)
== END 2021-09-22 13:52 | disposition home or self-care (01) | DRG 305 ==
LOC: JP.ED 00:46 → JP.MS 04:19
PROVIDERS: ADMIT Internal Medicine; ATTEND Internal Medicine
DX: I16.0 Hypertensive urgency (principal); N30.00 Acute cystitis without hematuria; I25.10 Atherosclerotic heart disease of native coronary artery without angina pectoris; R07.9 Chest pain, unspecified; I10 Essential (primary) hypertension; I48.0 Paroxysmal atrial fibrillation; Z66 Do not resuscitate; H54.7 Unspecified visual loss; E78.00 Pure hypercholesterolemia, unspecified; K59.09 Other constipation; M19.90 Unspecified osteoarthritis, unspecified site; E11.42 Type 2 diabetes mellitus with diabetic polyneuropathy; R33.9 Retention of urine, unspecified; I25.83 Coronary atherosclerosis due to lipid rich plaque; Z86.73 Personal history of transient ischemic attack (TIA), and cerebral infarction without residual deficits; Z90.89 Acquired absence of other organs; Z79.899 Other long term (current) drug therapy; Z79.82 Long term (current) use of aspirin; I25.2 Old myocardial infarction; Z95.5 Presence of coronary angioplasty implant and graft; Z79.84 Long term (current) use of oral hypoglycemic drugs; Z79.02 Long term (current) use of antithrombotics/antiplatelets; Z79.01 Long term (current) use of anticoagulants; Z88.2 Allergy status to sulfonamides; Z98.49 Cataract extraction status, unspecified eye; Z20.822 Contact with and (suspected) exposure to COVID-19
CPT/HCPCS: 0241U; 36415; 71045; 71045-26; 80053; 81001; 83605; 83880; 84484; 85025; 85379; 86140; 87086; 87088; 93005; 93010; 96374; 97161-GP; 97530-GP; 97535-GP; 99222; 99238; 99285; 99285-25; A9270-GY; J0360; J0696; J3490

== ENCOUNTER 2022-07-21 08:47 | Emergency (ER) | payer MEDICARE ==
[2022-07-21 09:55] LABS: ESTIMATED GFR 43 mL/min (>60)
[2022-07-21] MEDS ORDERED: Sodium Chloride 0.9% 500 ML IV ONE (10:25)
[2022-07-21] MEDS ORDERED: Iopamidol 612 MG/ML 100 ML Bottle IV PRN (10:59)
[2022-07-21] MEDS ORDERED: Sodium Chloride 0.9% 50 ML IV SCH (11:00)
[2022-07-21] MEDS ORDERED: Sodium Chloride 0.9% 10 ML SDV FLUSH ONE (11:00)
[2022-07-21 11:32] VITALS: BP 145/58; PULSE 78
== END 2022-07-21 12:50 | disposition home or self-care (01) ==
LOC: JP.ED 08:47
DX: N39.0 Urinary tract infection, site not specified (principal); K59.09 Other constipation; R82.71 Bacteriuria; E11.42 Type 2 diabetes mellitus with diabetic polyneuropathy; I25.10 Atherosclerotic heart disease of native coronary artery without angina pectoris; I48.91 Unspecified atrial fibrillation; I10 Essential (primary) hypertension; I25.119 Atherosclerotic heart disease of native coronary artery with unspecified angina pectoris; E78.00 Pure hypercholesterolemia, unspecified; I25.2 Old myocardial infarction; Z88.2 Allergy status to sulfonamides; Z79.82 Long term (current) use of aspirin; Z79.84 Long term (current) use of oral hypoglycemic drugs; Z79.02 Long term (current) use of antithrombotics/antiplatelets; Z79.899 Other long term (current) drug therapy; Z86.73 Personal history of transient ischemic attack (TIA), and cerebral infarction without residual deficits
CPT/HCPCS: 36415; 51702; 74177; 80053; 81001; 83605; 83690; 85025; 86140; 96360; 99284; J3490; J7040; Q9967